=== PATIENT | female | born 1960 | race Caucasian/White ===

== ENCOUNTER 2018-04-11 14:04 | Outpatient (CLI) | payer MEDICARE ==
--- NOTE | 2018-04-11 16:07 | RAD ---
PA AND LATERAL VIEWS CHEST: HISTORY: Pneumonia. FINDINGS: The heart size is normal. The lungs are expanded without focal areas of consolidation, pneumothorace s, or pleural effusions. Dorsal stimulator leads are seen in the thoracic spine. IMPRESSION: No radiographic evidence of acute cardiopulmonary process. POS: [facility]
== END 2018-04-11 14:05 | disposition home or self-care (01) ==
LOC: MADRAD 14:04
PROVIDERS: ATTEND Family Medicine
DX: Z87.01 Personal history of pneumonia (recurrent) (principal)
CPT/HCPCS: 71046

== ENCOUNTER 2022-09-18 12:46 | Emergency (ER) | payer MEDICARE | END 2022-09-18 15:11 | disposition home or self-care (01) | LOC: MADERS 12:46 | DX: R04.2 Hemoptysis (principal); F17.210 Nicotine dependence, cigarettes, uncomplicated; Z79.899 Other long term (current) drug therapy | CPT/HCPCS: 71046 ==